=== PATIENT | female | born 1970 | race Caucasian/White ===

== ENCOUNTER 2017-05-10 06:23 | Day surgery (SDC) | payer BC, OTHER ==
[~2017-05-10] VITALS: Ht 152.4 cm; Wt 105.6 kg
--- NOTE | ~2017-05-10 | S ---
[facility] [place] [address] SURGICAL PATH RPT PROCEDURE Name: GRANT HAMMER Room #: DEP [facility] Juvenal.Ej.#: [id number] Admission: 05/10/17 Date of : 74 Discharge: 05/11/17 Report #: [id number] Path Case #: [id number] PATHOLOGY REPORT COLLECTION DATE: 05/10/2017 RECEIVED DATE: 05/10/2017 SUBMITTING PHYS: Dr. Luis Eduardo Lorenzana OTHER PHYS: Dr. Demetris Dove SPECIMEN(S) RECEIVED: A.Left lumbar 4-5 disc * * * * * * * * * * * * FINAL DIAGNOSIS: Disc, left lumbar, 4-5 disc, discectomy: - Reactive chondroid material along with fibrillary matrix, history of herniated disc and radiculopathy. (IUV:pit; 05/12/2017) PATHOLOGIST: Estella Hayden M.D. REPORT ELECTRONICALLY SIGNED BY: Estella Hayden M.D. DATE/TIME: 05/12/2017 16:23 * * * * * * * * * * * * GROSS PATHOLOGY: Received in formalin labeled "Grant Hammer, left lumbar 4-5 disc," are several pieces of glistening, fibrous tissue measuring 3.9 x 3.8 x 0.9 cm in aggregate dimensions with no grossly appreciable bone. The tissue is submitted representatively in cassette A1. (CAA; 05/11/2017) CLINICAL HISTORY: Herniated disc L4-5, radiculopathy INITIAL CPT CODE(S): A; 71375 Professional services performed by [facility] at [facility] [address], [place] [address] Technical services performed by [facility] at [address] [place] [id number]. [facility] [address] [place] [address] SURGICAL PATH RPT PROCEDURE Name: GRANT HAMMER Room #: DEP [facility] Jay Jay#: [id number] Admission: 05/10/17 Date of : 74 Discharge: 05/11/17 Report #: [id number] Path Case #: [id number] [facility] [address] [address] PHONE: [phone] DIRECTOR: Ronnie Richter M.D. * * * END OF REPORT * * *
--- NOTE | ~2017-05-10 | O ---
[facility] [place] [address] OPERATIVE REPORT Name: GRANT LEMUS Room #: DEP [facility].#: [id number] Admission: 05/10/17 Attend Phys: Luis Eduardo Lorenzana MD Discharge: 05/11/17 Date of : 74 Report #: [id number] THIS REPORT FOR: //name// CC: Luis Eduardo Dove DATE OF SERVICE: 05/10/2017 PREOPERATIVE DIAGNOSIS: Herniated lumbar disk, L4-L5, left with radiculopathy. POSTOPERATIVE DIAGNOSIS: Herniated lumbar disk, L4-L5, left with radiculopathy. PROCEDURE: Decompressive laminectomy and diskectomy, L4-L5, left. SURGEON: Luis Eduardo Lorenzana MD INDICATIONS: This heavy 46-year-old female presents with chronic progressive low back pain radiating towards the left leg. She has had intermittent symptoms for quite a number of months trying to manage this conservatively. Now, her symptoms are more severe with intractable leg pain. MRI scan confirms a herniated disk at L4-L5 toward the left side causing nerve root and foraminal impingement. Given these findings and persistent symptoms, she has elected to go ahead with surgical laminectomy and diskectomy. DESCRIPTION OF PROCEDURE: The patient was taken to the operating room where she was placed under general anesthesia. Prophylactic intravenous antibiotics were administered. She was turned to the prone position and the lower back was meticulously prepped and draped. C-arm was used to localizing the appropriate level and a skin incision was made just to the left of midline overlying the L4-L5 interspace. This was carried through fascia and the paraspinal muscles were retracted out laterally. C-arm was again used to confirm the appropriate level. A small laminotomy in the inferior aspect of L4 and the superior aspect of L5 was created. The ligamentum was excised. The dissection was extended out laterally and the facet was somewhat hypertrophied with a moderate spurring causing some canal and foraminal narrowing as well. Once adequate bony decompression was established, the dura and nerve root were retracted in the midline and the disk was visualized. The disk was found to be moderately prominent consistent with a moderate sized disk bulge, but without extruded fragments. The annulus was still intact, but was significantly attenuated. I was able to easily push through the annulus placing a probe in the disk space. C-arm view was established confirming that I was indeed at the appropriate L4-L5 level. The annulus was then gently opened and a moderate amount of loose degenerative disk debris medially pushed forward. This was removed with pituitary rongeurs. A good deal of additional loose degenerative disk debris was removed from within the disk space effectively decompressing the disk and improving the canal compromise. The disk was thoroughly debrided using [facility] [address] [place] [address] OPERATIVE REPORT Name: GRANT LEMUS Room #: DEP [facility] Jay Jay#: [id number] Admission: 05/10/17 Attend Phys: Luis Eduardo Lorenzana MD Discharge: 05/11/17 Date of : 74 Report #: [id number] pituitary rongeurs removing any loose irregular degenerative material. The annulus was still slightly prominent, but there was clear improvement in the canal and neural foramina. The foramina was opened more extensively with slight further bony decompression undercutting the facet extending out into the neural foramina. This resulted in satisfactory decompression of both the central canal and the neural foramina. The nerve root appeared to be freed up nicely. There was some edema and erythema of the nerve root consistent with some chronic compression. However, the nerve root seemed to be loose from any further impingement. At this point, the area was gently packed with Gelfoam, thrombin and cottonoids until good hemostasis was confirmed. The nerve root was again inspected and felt to be nicely freed up. The wound was thoroughly irrigated and good hemostasis was again confirmed. 40 mg of Depo-Medrol was then left around the epidural space covering the nerve root. A small sheet of Gelfoam was then placed over the laminotomy defect to control the Depo-Medrol and add to hemostasis. The fascia and muscle layer was then closed with multiple #1 Vicryl sutures. The adipose layer was closed with multiple 0 Monocryl sutures. The skin was closed with skin yenifer, 10 mL of 0.5% Marcaine with epinephrine were left in the wound and a muscle layer to help with postoperative pain management. The skin was closed with skin yenifer. A sterile dressing was applied. The patient was then awakened and returned to recovery room in good condition. <ELECTRONICALLY SIGNED> By: Luis Eduardo Lorenzana MD 05/12/17 0749 [id number] Luis Eduardo Lorenzana MD /nt
--- NOTE | ~2017-05-10 | EKG ---
[address] [address] ELECTROCARDIOGRAM REPORT Name: GRANT LEMUSLLE Room #: DEP [facility]#: [id number] Admission: 05/10/17 Attend Phys: Luis Eduardo Lorenzana MD Discharge: 05/11/17 Date of : 74 Report #: [id number] THIS REPORT FOR: //name// [facility] Test Date: 2017-05-10 Test Time: 08:19:37 Pat Name: GRANT LEMUS Department: Room: 150 6 Gender: F Life Skills Educator: SHARON : 1970 Requested By: Luis Eduardo Lorenzana Order Number: [id number] MD: Liam Valdez Measurements Intervals Morrill Rate: 77 P: 56 ID: [id number] QRS: 29 QRSD: 85 T: 7 QT: 366 QTc: 415 Interpretive Statements Sinus rhythm Normal tracing Compared to ECG 09/07/2014 08:59:42 No significant change was found Electronically Signed On 05-12-2017 7:05:37 CDT by Liam Valdez [email or web address] <ELECTRONICALLY SIGNED> By: Liam Valdez MD, [facility] 05/12/17 07 8 8 Liam Valdez MD, [facility] /EPI
[~2017-05-10 06:23] MED LIST: BENICAR HCT 201 EACH PO; MOBIC7.5 MG PO; OLMESARTAN-HCT1 EAC2 PO
[2017-05-10 08:16] VITALS: BP 128/51
[2017-05-10 08:31] LABS: CALCIUM 8.9 mg/dL (8.5-10.1); POTASSIUM 3.6 mmol/L (3.5-5.1)
[2017-05-10 19:39] VITALS: BP 115/67
[2017-05-11 03:23] VITALS: BP 95/40
[2017-05-11 05:15] VITALS: BP 97/45
[2017-05-11 07:10] VITALS: BP 106/46
[2017-05-11 09:11] VITALS: BP 106/46
[2017-05-11 10:56] VITALS: BP 106/46
== END 2017-05-11 10:45 | disposition home or self-care (01) ==
LOC: OR 06:23 → TBA 06:23 → OR 11:08 → 5S 13:33 → OR 05-11 10:45
PROVIDERS: Orthopaedic Surgery
DX: M51.16 Intervertebral disc disorders with radiculopathy, lumbar region (principal); I10 Essential (primary) hypertension; Z90.49 Acquired absence of other specified parts of digestive tract; Z98.890 Other specified postprocedural states; Z79.899 Other long term (current) drug therapy
CPT/HCPCS: 50010; 50101; 50402; 50704; 50850; 51412; 56525; 62110; 62900; 70005

== ENCOUNTER 2017-05-14 05:26 | Day surgery (SDC) | payer BC, OTHER | END 2017-05-14 08:25 | disposition home or self-care (01) | LOC: TBA 05:26 → OR 05:26 | DX: M96.1 Postlaminectomy syndrome, not elsewhere classified (principal); I10 Essential (primary) hypertension; Z98.890 Other specified postprocedural states; Z90.49 Acquired absence of other specified parts of digestive tract ==

== ENCOUNTER → 2017-05-14 | Outpatient (CLI) | payer BC, OTHER | LOC: MRI 08:50 | DX: M54.5 Low back pain (principal); R20.0 Anesthesia of skin ==